=== PATIENT | male | born 1975 | race Caucasian/White ===

== ENCOUNTER 2018-11-10 01:42 | Inpatient (IN) | payer OTHER ==
--- NOTE | 2018-11-10 03:48 | HP ---
PRIMARY CARE PHYSICIAN: Margaret Cook NP CHIEF COMPLAINT: Swelling and redness of right thigh. HISTORY OF PRESENT ILLNESS: The patient is a 43-year-old male with past medical history significant for benign right kidney tumor, status post nephrectomy, who presents to the emergency department for erythema of his right thigh and fever for the past two days. The patient is not taking any medication except for taking ibuprofen for fever. The patient is unsure how this swelling started, but reports pain with movement of his right thigh. The patient also reports that he has redness and some spots on both of his buttocks. The patient denies any trauma or any known infection that could have caused this to happen. The patient denied any chest pain, shortness of breath, abdominal pain, nausea, vomiting, or diarrhea. The patient is not taking any medication at this point. PAST MEDICAL HISTORY: Benign kidney tumor, status post nephrectomy. PAST SURGICAL HISTORY: Right nephrectomy. ALLERGIES: NO KNOWN DRUG ALLERGIES. FAMILY HISTORY: Denies any known medical problems. MEDICATIONS: None. SOCIAL HISTORY: The patient reports occasional once in a while smoking. Occasional drinking. PHYSICAL EXAMINATION: VITAL SIGNS: Blood pressure 104/76, heart rate 107, respiration rate 20, temperature 99.2, and O2 saturation 98% on room air. GENERAL: The patient is alert, oriented, and does not seem to be in acute distress. HEENT: Head, atraumatic. Ears and nose appears to be grossly normal without any defects. Mouth, no exudate noted. NECK: No lymphadenopathy noted. CARDIOVASCULAR: Regular rate and rhythm. No murmur, rubs, or gallops. RESPIRATORY: Clear bilaterally. No wheezes. GI: Soft, nontender. Bowel sounds positive. EXTREMITIES: The patient's right thigh inner part noted to have erythema, tenderness, and induration noted. On both buttocks, the patient noted to have multiple erythematous spots noted, nontender. NEURO: The patient is alert. SKIN: As mentioned in the extremity examination. DIAGNOSTIC STUDIES: The patient's labs from outside ER reviewed. White blood cell count 22.4, hemoglobin 14, hematocrit 40.4, and platelet 168. Sodium 135, potassium 3.4, chloride 105, bicarb 21, BUN 12, creatinine 1.04, glucose is 122. Lactic acid 8. LFTs noted to be within normal limit. ASSESSMENT AND PLAN: 1. Cellulitis. The patient has right extremity cellulitis along with both buttocks cellulitis as well. The patient was given vancomycin at the outside ER. We will continue vancomycin here. We will follow up blood culture from the outside ER. Continue IV fluids. 2. Sepsis present on admission, likely due to cellulitis organism unknown at this point, continue antibiotics as mentioned above. Continue IV fluids. 3. History of right nephrectomy. Will avoid any NSAIDs. The patient instructed to stay away from ibuprofen, naproxen, Motrin, Aleve. Recommend taking Tylenol for pain. Will have Tylenol and [place] p.r.n. at this point. 4. The patient is a full code. Medical power of criminal defense attorney, . 5. Deep venous thrombosis prophylaxis, SCD, addressed. Job ID: [id number]
[2018-11-10] MEDS ORDERED: Acetaminophen 325 MG TAB PO PRN (03:49)
[2018-11-10] MEDS ORDERED: HYDROcodone/Acetaminophen 5/325 mg Tablet PO PRN (03:49)
[2018-11-10] MEDS: Sodium Chloride 0.9% 1,000 ML IV SCH ×2 (04:00→15:31)
[2018-11-10] MEDS ORDERED: Vancomycin HCl 1.75 GM in Sodium Chloride 0.9% 500 ML IVPB SCH (06:00)
[2018-11-10] MEDS: Potassium Citrate 10 MEQ TAB PO SCH ×3 (08:21→17:37)
[2018-11-10] MEDS: Ondansetron ODT 4 MG TAB PO PRN ×2 (10:59→15:30)
[2018-11-10 11:25] VITALS: BMI 24.5
--- NOTE | 2018-11-10 11:51 | PDOC.PN ---
- Subjective Encounter Start Date: 11/10/18 Encounter Start Time: 11:30 Subjective: patient examined today, denies fever, palpations, reports nausea, diarrhea -: Reports 102 fever yesterday and tachycardia -: Reports similar area of redness to lateral right thigh, improving - Objective Resuscitation Status - Order Detail: 11/10/18 02:45 Resuscitation Status Routine Resuscitation Status: FULL: Full Resuscitation Vital Signs & Weight: Vital Signs (12 hours) Temp Pulse Resp BP BP Pulse Ox 11/10/18 08:00 98.1 F 94 18 118/56 L 118/56 L 96 11/10/18 04:00 98.1 F 96 18 113/57 L 96 Weight Admit Weight 82.327 kg Weight 82.1 kg I&O: 11/09/18 11/10/18 11/11/18 06:59 06:59 06:59 Intake Total 800 Balance 800 Phys Exam - Physical Examination HEENT: PERRLA, moist MMs Neck: no nodes, no JVD Respiratory: clear to auscultation bilateral Cardiovascular: RRR, no significant murmur Gastrointestinal: soft, non-tender Musculoskeletal: pulses present, edema present large area of erythema and warmth to right anterior thigh, groin and streaking noted toward knee. tender to touch. Neurological: non-focal, normal sensation, moves all 4 limbs Deviation from normal: erythema, warmth and streaking noted to anterior right thigh, 4x4cm area of -: light colored erythema to lateral right thigh, sores/erythema to bilateral Dx/Plan (1) Cellulitis of leg, right Code(s): L03.115 - CELLULITIS OF RIGHT LOWER LIMB Status: Acute (2) Cellulitis Code(s): L03.90 - CELLULITIS, UNSPECIFIED Status: Acute (3) Sepsis Code(s): A41.9 - SEPSIS, UNSPECIFIED ORGANISM Status: Acute (4) Fever Code(s): R50.9 - FEVER, UNSPECIFIED Status: Acute (5) Nausea Code(s): R11.0 - NAUSEA Status: Acute (6) Diarrhea Code(s): R19.7 - DIARRHEA, UNSPECIFIED Status: Acute (7) Tachycardia Code(s): R00.0 - TACHYCARDIA, UNSPECIFIED Status: Acute - Plan cont current plan of care, continue antibiotics, respiratory therapy, DVT proph w/heparin, DVT proph w/SCDs Will continue IV fluids and ABX, -: Ordered Cdiff for diarrhea, nurses to radha erythema -: Will order CT scan of right hip for extensive cellulitis on right hip, leg -: Buttocks, -: Will check labs in AM and monitor VS. * .
--- NOTE | 2018-11-10 15:32 | MRI ---
MRI RIGHT THIGH WITH AND WITHOUT IV CONTRAST: 11/10/2018 PROVIDED CLINICAL HISTORY: Cellulitis. FINDINGS: There is reticulation of the subcutaneous adipose layer of the anteromedial right thigh, in the regio n of clinical concern, compatible with the provided clinical history of cellulitis. There is no evid ence for a focal soft tissue fluid collection to suggest abscess. There is no signal abnormality inv olving the intramuscular fascial planes. No muscular signal abnormality is evident. Regional marrow signal appears normal. The amount of fluid within the right hip joint appears physiologic. Promine nt by number but not pathologically enlarged right inguinal lymph nodes are seen, presumably reactive . IMPRESSION: 1. Signal changes within the subcutaneous adipose layer of the anteromedial right thigh, compatible with the provided clinical history of cellulitis. 2. No evidence for abscess. POS: TPC
--- NOTE | 2018-11-10 15:40 | PDOC.EVN ---
Event Note - Event Note Event Note: case discussed with FLOOR LAYER HELPER Keyla, suggest add alexis
[2018-11-10] MEDS: cefTRIAXone\\ROCEPHIN 2 GM in Sodium Chloride 0.9% 100 ML IVPB SCH (16:38)
[2018-11-11] MEDS ORDERED: diphenhydrAMINE 25 MG CAP PO PRN (03:33)
[2018-11-11] MEDS ORDERED: diphenhydrAMINE 25 MG CAP PO SCH (03:45)
[2018-11-11] MEDS: Sodium Chloride 0.9% 1,000 ML IV SCH (04:54)
[2018-11-11 05:33] LABS: Anion Gap 14 mmol/L (10-20); BUN (Urea Nitrogen) 10 mg/dL (8.9-20.6); Calc. Creatinine Clearance 134 mL/min (70-130); Calcium 8.6 mg/dL (7.8-10.44); Carbon Dioxide 19 mmol/L (22-29); Chloride 108 mmol/L (98-107); Estimated GFR-MDRD Greater than 90; Glucose 84 mg/dL (70-105); Sodium 137 mmol/L (136-145)
[2018-11-11 05:38] LABS: Band 11 % (5-11); Hemoglobin 12.8 g/dL (14.0-18.0); Hypochromia SLIGHT = 6-15 cells (100X) (0-5/hpf); Lymphocytes 4 % (21-51); MDiff Complete? YES; Mean Corpuscular HGB CONC 32.8 g/dL (32.0-36.0); Mean Corpuscular Hemoglobin 31.4 pg (27.0-31.0); Mean Corpuscular Volume 95.7 fL (78.0-98.0); Mean Platelet Volume 8.7 fL (7.4-10.4); Monocytes 1 % (0-10); Neutrophil 84 % (42-75); Platelet Count 159 thou/uL (130-400); Platelet Morphology Comment Appears Adequate; RBC Distribution Width 11.7 % (11.5-14.5); Red Blood Cell (RBC) Count 4.06 mill/uL (4.70-6.10)
[2018-11-11] MEDS: Potassium Citrate 10 MEQ TAB PO SCH ×3 (09:49→16:55)
[2018-11-11] MEDS ORDERED: VANCOMYCIN IVPB PRN (11:27)
[2018-11-11] MEDS: Vancomycin HCl 1.25 GM in Sodium Chloride 0.9% 250 ML 250 ML IVPB SCH ×2 (12:23→20:34)
[2018-11-11] MEDS: cefTRIAXone\\ROCEPHIN 2 GM in Sodium Chloride 0.9% 100 ML IVPB SCH (15:50)
--- NOTE | 2018-11-11 22:18 | PDOC.PN ---
- Subjective Encounter Start Date: 11/11/18 Encounter Start Time: 09:45 Feels well. Has multiple questions, but not specific other complaints. - Objective Resuscitation Status - Order Detail: 11/10/18 02:45 Resuscitation Status Routine Resuscitation Status: FULL: Full Resuscitation Vital Signs & Weight: Vital Signs (12 hours) Temp Pulse Resp BP Pulse Ox 11/11/18 19:28 98.1 F 83 20 117/63 97 Weight Admit Weight 181 lb 7.999 oz Weight 181 lb I&O: 11/10/18 11/11/18 11/12/18 06:59 06:59 06:59 Intake Total 800 1960 350 Balance 800 1960 350 Result Diagrams: 11/11/18 03:44 11/11/18 03:44 Phys Exam - Physical Examination Constitutional: NAD Respiratory: no wheezing, no rales, no rhonchi Cardiovascular: RRR, no significant murmur, no rub Split S2 Gastrointestinal: soft, non-tender, no distention Musculoskeletal: no edema Psychiatric: normal affect, A&O x 3 Deviation from normal: Right anterior thigh with area of dense cellulitis that is modestly extende -: outside of the original border marking. Slightly warm, NT. No abscess. Dx/Plan (1) MVP (mitral valve prolapse) Code(s): I34.1 - NONRHEUMATIC MITRAL (VALVE) PROLAPSE Status: Acute (2) Cellulitis of leg, right Code(s): L03.115 - CELLULITIS OF RIGHT LOWER LIMB Status: Acute (3) Fever Code(s): R50.9 - FEVER, UNSPECIFIED Status: Acute - Plan * Long discussion regarding the pathophys of the cellulitis. Likely staph or strep. MRSA a possibility. Reviewed the MRI findings. * Has blood cultures pending. * Had Vanc initiated, but changed to Rocephin. * Has solitary kidney, but normal creatinine. Discussed with pharmacist. Will resume the Vanc and pharmacy will monitor dosing. * Will follow temp curve, exam, wbc and blood culture to determine timing of the abx convesion to po. * Echocardiogram. * Followed as outpatient by Dr. Parsons. * May need bactroban nasal at discharge.
[2018-11-12] MEDS: Vancomycin HCl 1.25 GM in Sodium Chloride 0.9% 250 ML 250 ML IVPB SCH ×3 (04:09→19:58)
[2018-11-12 08:45] LABS: #Eosinphils 0.3 thou/uL (0.0-0.7); #Lymphocytes 1.8 thou/uL (1.20-3.40); #Monocytes 0.7 thou/uL (0.11-0.59); #Neutrophils 8.8 thou/uL (1.40-6.50); %Basophils 0.3 % (0.0-1.0); %Eosinophils 2.8 % (0.0-10.0); %Lymphocytes 15.5 % (21.0-51.0); %Monocytes 5.8 % (0.0-10.0); %Neutrophils 75.6 % (42.0-75.0); Mean Corpuscular HGB CONC 32.4 g/dL (32.0-36.0); Mean Corpuscular Hemoglobin 31.1 pg (27.0-31.0); Mean Corpuscular Volume 95.8 fL (78.0-98.0); Mean Platelet Volume 8.2 fL (7.4-10.4); Platelet Count 182 thou/uL (130-400); RBC Distribution Width 11.8 % (11.5-14.5); White Blood Cell (WBC) Count 11.6 thou/uL (4.8-10.8)
[2018-11-12 09:02] LABS: Anion Gap 10 mmol/L (10-20); BUN (Urea Nitrogen) 9 mg/dL (8.9-20.6); Calc. Creatinine Clearance 130 mL/min (70-130); Calcium 9.3 mg/dL (7.8-10.44); Carbon Dioxide 25 mmol/L (22-29); Chloride 107 mmol/L (98-107); Estimated GFR-MDRD Greater than 90; Glucose 92 mg/dL (70-105); Potassium 4.2 mmol/L (3.5-5.1); Sodium 138 mmol/L (136-145)
[2018-11-12] MEDS: Potassium Citrate 10 MEQ TAB PO SCH (12:10)
--- NOTE | 2018-11-12 13:12 | PRG ---
DATE OF SERVICE: 11/12/2018 SUBJECTIVE: The patient denies any new complaints at this time. He still has some discomfort over his right medial thigh that is improving. He denies any fever or chills. He had 1 episode of diarrhea yesterday, which has resolved. No chest pain or shortness of breath reported. CURRENT MEDICATIONS: Current medications were reviewed. The patient is currently on; 1. Vancomycin. 2. Ceftriaxone. OBJECTIVE: VITAL SIGNS: Temperature 98 with a T-max of 100.2, pulse rate of 88, blood pressure 123/62, O2 saturation 97% on room air, and respirations of 16. GENERAL: A 43-year-old male, in no apparent distress. LUNGS: Clear to auscultation bilaterally. HEART: S1 and S2 present. Regular rate and rhythm. ABDOMEN: Soft. Bowel sounds present. EXTREMITIES: There is significant erythema over the right medial thigh, which is improving. Some warmth present. LABORATORY FINDINGS: WBC down to 11.6 from 17. BUN 9 and creatinine 0.87. Vancomycin trough was 16. Lower extremity MRI showed anteromedial right thigh cellulitis. IMPRESSION: 1. Sepsis secondary to right anteromedial thigh cellulitis. 2. Metabolic acidosis, resolved. 3. History of benign kidney tumor, status post nephrectomy. 4. History of mitral valve prolapse. PLAN: IV ceftriaxone and vancomycin will be continued. The patient was advised to increase his water intake. Probiotics will be added. We will consult Dr. Prince due to history of nephrectomy. Monitor vancomycin level. We will repeat labs in 48 hours. The patient was advised not to take any nephrotoxic medications. Echocardiogram has already been done for mitral valve prolapse per patient request. Report pending at this time. Job ID: [id number]
[2018-11-12] MEDS: cefTRIAXone\\ROCEPHIN 2 GM in Sodium Chloride 0.9% 100 ML IVPB SCH (16:49)
[2018-11-12] MEDS ORDERED: Saccharomyces boulardii 250 MG CAP PO SCH (21:00)
[2018-11-13] MEDS: Vancomycin HCl 1.25 GM in Sodium Chloride 0.9% 250 ML 250 ML IVPB SCH ×2 (03:42→12:07)
[2018-11-13] MEDS ORDERED: diphenhydrAMINE 2% CREAM 28.4 GM TUBE TOP PRN (08:24)
[2018-11-13] MEDS ORDERED: Polyethylene Glycol 3350 17 GM Packet PO PRN (08:25)
[2018-11-13] MEDS ORDERED: Eucerin (Mineral Oil/Petrolatum,White) 30 gm Jar TOP PRN (08:25)
[2018-11-13] MEDS ORDERED: Saccharomyces boulardii 250 MG CAP PO SCH (09:00)
[2018-11-13 09:05] VITALS: BP 119/79; TEMP 97.6
--- NOTE | 2018-11-13 09:19 | PRG ---
DATE OF SERVICE: 11/13/2018 SUBJECTIVE: The patient denies any new complaints at this time. He has some itching over the affected site. No fevers or chills. Erythema is improving. No nausea, vomiting, diarrhea reported. REVIEW OF SYSTEMS: As discussed above. OBJECTIVE: VITAL SIGNS: Temperature 98.3, pulse rate of 71, blood pressure 109/70, respiration 16, O2 saturation 99% on room air. GENERAL: A 43-year-old male, in no apparent distress. LUNGS: Clear to auscultation bilaterally. HEART: S1 and S2 present. Regular rate and rhythm. ABDOMEN: Soft. Bowel sounds present. EXTREMITIES: Improving erythema over the right anteromedial thigh. No calf tenderness. NEUROLOGIC: Grossly nonfocal. LABORATORY FINDINGS: Vancomycin trough was 16. BUN 9, creatinine 0.87. WBC of 11.6 with hematocrit of 43.1. CURRENT MEDICATIONS: Current medications were reviewed. The patient is currently on ceftriaxone and vancomycin intravenously. IMPRESSION: 1. Sepsis secondary to right anteromedial thigh cellulitis, improving. He is currently on ceftriaxone and vancomycin, which will be continued. Infectious Disease has been consulted for assistance with outpatient antibiotics given his history of right nephrectomy. 2. Metabolic acidosis, improved. 3. History of benign kidney tumor, status post right nephrectomy. 4. Mitral valve prolapse. The patient underwent echocardiogram this admission (per patient request). PLAN: Plan was discussed with the patient. He stated understanding. Job ID: [id number]
--- NOTE | 2018-11-13 16:34 | CON ---
DATE OF CONSULTATION: 11/13/2018 REASON FOR CONSULTATION: Right thigh inflammatory changes. HISTORY OF PRESENT ILLNESS: A 43-year-old, first admission to [facility] with a history of a right nephrectomy due to a benign mass in the right kidney in the past. The patient has a habit of picking his gluteal skin for many months now to the point that he developed some superficial ulcerations. He noticed the development of inflammatory changes in the right groin with tenderness, which have expanded to the right medial thigh that led him to come to the hospital and was admitted, started on broad-spectrum antimicrobial coverage. No headaches, visual symptoms, sore throat, odynophagia, or dysphagia. No cough, sputum production, or chest pain. No abdominal pain. No genitourinary symptoms. No joint symptoms. No neurological symptoms. PAST MEDICAL HISTORY: Benign right kidney mass, which led to nephrectomy. ALLERGIES: NONE. FAMILY HISTORY: Noncontributory. SOCIAL HISTORY: He is a molding utility worker. He is . Smokes once a year. Does not drink alcoholic beverages, maybe occasionally. ALLERGY HISTORY: Negative. CURRENT MEDICATIONS: 1. Rocephin. 2. Benadryl. 3. Zofran. 4. MiraLAX. 5. Florastor. 6. Vancomycin. PHYSICAL EXAMINATION: VITAL SIGNS: Vital signs are essentially normal since admission, except for one temperature of 100.2 on November 10. SKIN: Exam shows the area of erythema in the medial aspect of the right thigh extending from right groin about 10 cm from the right knee medial aspect. There are some areas of induration at the center of this erythema. The patient also has areas of erythema in the gluteal region, right and left side. Both areas have markedly improved since admission. He did have some superficial excoriation in the right and left gluteal skin regions. No lymphadenopathy, maybe in the right groin, but very small. HEENT: Noncontributory. NECK: Supple. No jugular vein distention or thyromegaly. LUNGS: Symmetric with clear breath sounds. CARDIOVASCULAR: S1 and S2. Regular rate. No S3, S4, or murmurs. ABDOMEN: Soft, not distended, or nontender. No ascites. No bladder distention. MUSCULOSKELETAL: No joint inflammatory activity. Moves extremities equally. NEUROLOGIC: Cognitive function appears to be intact. LABORATORY DATA: The white cell count is down from 17 to 11.6, hemoglobin is 14, MCV 95, and platelets 182 with 75% neutrophils and 15% lymphocytes. Sodium 137, creatinine 0.84, and vanc trough 16. Microbiology; one set of blood cultures, no growth for 48 hours. IMAGING STUDIES: There is a lower extremity MRI, which showed cellulitis, but no obvious abscess formation. ASSESSMENT: History of self excortication in gluteal skin region in the past, now with inflammatory changes in right medial thigh, which are improving rapidly after initiation of antimicrobial therapy. DISCUSSION: Cellulitis in the thigh skin region are usually associated with staphylococcal infections and sometimes may form into abscesses. This behaves different than what one usually sees with lower extremity leg cellulitis. He is interested in leaving and being discharged for followup in the outpatient setting, I believe this is reasonable. I would advise transition to oral linezolid for 10 days. Follow up in the outpatient setting. I will be glad to follow up the patient if necessary. Job ID: [id number]
--- NOTE | 2018-11-14 08:32 | DIS ---
DATE OF ADMISSION: 11/10/2018 DATE OF DISCHARGE: 11/13/2018 DISCHARGE DISPOSITION: Home. FOLLOWUP: 1. Follow up with primary care physician, Margaret Cook, in 1 week. 2. Follow up with Infectious Disease, Dr. Prince in 2 to 3 weeks. A repeat basic metabolic profile in 2 weeks is recommended. DISCHARGE MEDICATION: Doxycycline 100 mg b.i.d. with rifampin 300 mg b.i.d. for 14 days per Infectious Disease recommendation. Please note that the cost for linezolid for 14 days was approximately 3500. For this reason, the antibiotics were changed to rifampin and doxycycline. BRIEF HOSPITAL COURSE: The patient is a 43-year-old male, who presented to the emergency room with swelling along with redness over the right anteromedial thigh. His workup was consistent with cellulitis. He also underwent an MRI that was compatible with cellulitis. He showed good improvement with vancomycin and ceftriaxone. He was evaluated by Infectious Disease, Dr. Prince, who recommended linezolid. However, due to the cost of linezolid, the antibiotics were changed to doxycycline and rifampin. The patient also underwent an echocardiogram, which was originally scheduled as outpatient. It showed mitral valve prolapse with mild mitral regurgitation and mild tricuspid regurgitation. He was advised to follow up with Dr. Parsons as outpatient. FINAL DIAGNOSES: 1. Right anteromedial thigh cellulitis, improving with antibiotics. 2. History of mitral valve prolapse. 3. Sepsis secondary to right anteromedial thigh cellulitis. 4. Metabolic acidosis, improved. 5. History of benign kidney tumor, status post right nephrectomy. PLAN: Plan was discussed with the patient in detail. He stated understanding. Job ID: [id number]
== END 2018-11-13 17:50 | disposition home or self-care (01) | DRG 872 ==
LOC: ERS 01:42 → OBSVTOIN 02:15 → ONC 02:15
PROVIDERS: ADMIT Family Medicine; ATTEND Family Medicine
DX: A41.9 Sepsis, unspecified organism (principal); L03.115 Cellulitis of right lower limb; L03.317 Cellulitis of buttock; E87.2 Acidosis; B95.8 Unspecified staphylococcus as the cause of diseases classified elsewhere; R19.7 Diarrhea, unspecified; I34.1 Nonrheumatic mitral (valve) prolapse; Z90.5 Acquired absence of kidney
CPT/HCPCS: 36415; 80048; 80202; 83735; 85025; 93306; 99285; J0696; J3370; J7050; Q0162; Q0163

== ENCOUNTER 2019-07-28 09:21 | Day surgery (SDC) | payer OTHER ==
[2019-07-27 08:53] VITALS: BMI 24.4
[2019-07-28 10:20] LABS: #Eosinphils 0.3 thou/uL (0.0-0.7); #Lymphocytes 1.6 thou/uL (1.20-3.40); #Monocytes 0.4 thou/uL (0.11-0.59); #Neutrophils 3.3 thou/uL (1.40-6.50); %Basophils 0.6 % (0.0-1.0); %Eosinophils 4.8 % (0.0-10.0); %Monocytes 7.1 % (0.0-10.0); %Neutrophils 58.5 % (42.0-75.0); Hemoglobin 15.4 g/dL (14.0-18.0); Mean Corpuscular HGB CONC 33.2 g/dL (32.0-36.0); Mean Corpuscular Hemoglobin 31.3 pg (27.0-31.0); Mean Corpuscular Volume 94.1 fL (78.0-98.0); Mean Platelet Volume 7.8 fL (7.4-10.4); Platelet Count 178 thou/uL (130-400); RBC Distribution Width 11.6 % (11.5-14.5); Red Blood Cell (RBC) Count 4.92 mill/uL (4.70-6.10); White Blood Cell (WBC) Count 5.6 thou/uL (4.8-10.8)
[2019-07-28] MEDS ORDERED: Dexamethasone 20 MG/5 ML VIAL ONE (10:42)
[2019-07-28] MEDS ORDERED: PROPOFOL 200 MG/20 ML VIAL ONE (10:42)
[2019-07-28] MEDS ORDERED: Glycopyrrolate 0.2 MG/ML 5 ML SYRINGE ONE (10:42)
[2019-07-28] MEDS ORDERED: Ondansetron PF 4 MG/2 ML Vial ONE (10:42)
[2019-07-28] MEDS ORDERED: Ketorolac Tromethamine 30 MG/ML VIAL ONE (10:42)
[2019-07-28] MEDS ORDERED: Rocuronium Bromide 10 MG/ML (10ML VIAL) ONE (10:42)
[2019-07-28 10:45] LABS: Anion Gap 12 mmol/L (10-20); BUN (Urea Nitrogen) 16 mg/dL (8.9-20.6); Calc. Creatinine Clearance 110 mL/min (70-130); Calcium 9.3 mg/dL (7.8-10.44); Carbon Dioxide 25 mmol/L (22-29); Chloride 105 mmol/L (98-107); Estimated GFR-MDRD 80; Glucose 82 mg/dL (70-105); Potassium 4.2 mmol/L (3.5-5.1); Sodium 138 mmol/L (136-145)
[2019-07-28] MEDS ORDERED: Bupivacaine HCl 0.5%/Epinephrine 1:200,000/PF 30 ml Vial ONE (10:57)
[2019-07-28] MEDS ORDERED: Fentanyl 250 MCG/5 ML VIAL ONE (12:01)
[2019-07-28] MEDS ORDERED: Midazolam HCl 2 mg/2 ml Vial ONE (12:01)
[2019-07-28] MEDS ORDERED: HYDROcodone/Acetaminophen 5/325 mg Tablet ONE (14:19)
--- NOTE | 2019-07-28 21:16 | OP ---
DATE OF PROCEDURE: 07/28/2019 PREOPERATIVE DIAGNOSIS: Right inguinal hernia. POSTOPERATIVE DIAGNOSIS: Bilateral inguinal hernia. PROCEDURE PERFORMED: Laparoscopic Da Malika bilateral inguinal hernia repair with mesh, Bard 3DMax large. ANESTHESIA: General. ESTIMATED BLOOD LOSS: Minimal. COMPLICATIONS: None. SPECIMEN: None. FINDINGS: Bilateral inguinal hernia. DESCRIPTION OF PROCEDURE: The patient was taken to the operating room and laid supine on the operating room table. After general anesthetic was obtained, a Johnson was placed. The abdomen was shaved, prepped, and draped in a sterile fashion. A curved incision was made above the umbilicus, cautery dissected down to and scored the fascia. Abdominal cavity was entered bluntly using a Marisa clamp. The 11 mm balloon trocar was placed. High-flow pneumoperitoneum was obtained. Left and right abdominal 8 mm robot trocars were placed. The patient was placed in Trendelenburg position. All ports were docked to the robot. The perineum was taken down in the bilateral groin. The preperitoneal space was entered and bluntly dissected to pubic tubercle medially, anterior superior iliac crest laterally. The cord structures were skeletonized revealing small bilateral indirect hernias. He did have a small direct defect on the left and a femoral hernia on the right. The preperitoneal fat was dissected out of these defects. The full dissection was performed. The bilateral mesh was brought into the sterile field, passed in through the camera port and the M-labeled medial aspects were placed over pubic tubercle medially. The mesh was laid out to cover femoral, direct and indirect areas. The mesh was sewn with 2-0 Vicryl to pubic tubercle medially and posterior fascia lateral. The bilateral perineum was reapproximated using 3-0 Stratafix. All needles were removed from the abdomen and accounted for. All port sites were infiltrated using local anesthetic. All ports were removed under camera visualization. Pneumoperitoneum was let down. PDS was used to close the fascial defect above the umbilicus. All incisions were irrigated and closed using 4-0 Monocryl and Dermabond. The patient was sent to Recovery in stable condition. All instrument counts, needle counts, lap counts were correct. Job ID: [id number]
== END 2019-07-28 15:21 | disposition home or self-care (01) ==
LOC: SDC 09:21
PROVIDERS: ATTEND Surgery
PROC: 0YUA4JZ Supplement Bilateral Inguinal Region with Synthetic Substitute, Percutaneous Endoscopic Approach (ICD-10-PCS; principal; 2019-07-28)
DX: K40.20 Bilateral inguinal hernia, without obstruction or gangrene, not specified as recurrent (principal)
CPT/HCPCS: 36415; 80048; 85025; C1781; J0670; J0690; J1100; J1885; J2250; J2405; J2704; J3010